=== PATIENT | male | born 2000 | race Caucasian/White ===

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

== ENCOUNTER 2025-04-07 13:17 | Emergency (ER) | payer SELFPAY ==
--- NOTE | 2025-04-07 13:19 | ED.URI ---
HPI - URI/Sore Throat General Chief Complaint: Nausea/Vomiting/Diarrhea Stated Complaint: flu symptoms Time Seen by Provider: 04/07/25 13:19 Source: patient Mode of arrival: ambulatory Limitations: no limitations History of Present Illness HPI Narrative: Andrew is a 24-year-old male patient presenting to the clinic today with complaints of flu-like symptoms. He reports he just got back from [place]. While he was staying in [place]-1[place]5 weeks ago he developed some abdominal pain/diarrhea. Reported some bright red blood in his stool a few times however that has resolved. States the abdominal pain is improving- Last diarrhea stool was last night. Initially he was having anywhere from 1 diarrhea stool to 10 diarrhea stools per day. He came into the clinic today because he started having sore throat yesterday and nasal congestion. He also reports feeling feverish. States he thinks he may still be dehydrated due to the diarrhea. Denies any nausea or vomiting. Denies any chest pain or shortness of breath. Related Data Allergies Allergy/AdvReac Type Severity Reaction Status Date / Time amoxicillin Allergy Unknown UNKNOWN Verified 04/07/25 13:36 Review of Systems Review of Systems: Pertinent positives per HPI. Patient denies any rash, headache, visual changes, dizziness, cough, shortness of breath, chest pain, palpitations, nausea, vomiting, diarrhea, constipation, abdominal pain, or any urinary issues. PMFSH Social History Social History Smoking status: Never smoker Alcohol intake: never Substance use: never Living arrangements: with family Occupation/Education: student Comments At the time of my signature, I reviewed and agree with the nursing past medical, surgical, social, and family history. There is no relevant family history pertinent to the patient complaint. Exam Narrative: General: Well-developed, well nourished, in no apparent distress Head: Normocephalic, atraumatic Eyes: Pupils equally round and reactive to light bilaterally, EOM intact, sclera and conjunctive clear, no discharge, lids normal Ears: TMs intact and congested, ear canals clear, no drainage, grossly hearing normal. Nose: Nares patent, clear nasal discharge, no inflammation, no sinus tenderness. Mouth: Oral pharynx red with bilateral tonsillar enlargement without lesions or masses, good dentition, MMM. Neck: Supple, trachea midline, enlargement of anterior cervical nodes, no thyroid masses or goiter palpable. Cardio: Regular rate and rhythm, s1 and s2 normal, no murmur appreciated. Resp: Clear to auscultation bilaterally, no rhonchi, rales, wheezing or rubs General: Well-developed, well nourished, in no apparent distress Abdomen: Soft, pliable, bowel sounds present in all quadrants, non-tender to palpation, no organomegly, no CVAT tenderness. Course Course Emergency Course: Portions of this record may have been created with voice recognition software. Level of Care: Express Care Visit Vital Signs Vital signs: Vital Signs Temperature 38.1 C H 04/07/25 13:30 Pulse Rate 60 04/07/25 13:30 Respiratory Rate 18 04/07/25 13:30 Blood Pressure 130/63 04/07/25 13:30 Pulse Oximetry 98 04/07/25 13:30 Oxygen Delivery Room Air 04/07/25 13:30 Temperature 38.1 C H 04/07/25 13:30 Pulse Rate 60 04/07/25 13:30 Respiratory Rate 18 04/07/25 13:30 Blood Pressure 130/63 04/07/25 13:30 Pulse Oximetry 98 04/07/25 13:30 Oxygen Delivery Room Air 04/07/25 13:30 Vital signs reviewed MDM - URI/Sore Throat MDM Narrative Medical decision making narrative: At the time of visit patient is resting comfortably on the exam table. Patient appears to be nontoxic. Complaints of flu-like symptoms. He reports he just got back from [place]. While he was staying in [place]5 weeks ago he developed some abdominal pain/diarrhea. Reported some bright red blood in his stool a few times however that has resolved. States the abdominal pain is improving- Last diarrhea stool was last night. Initially he was having anywhere from 1 diarrhea stool to 10 diarrhea stools per day. He came into the clinic today because he started having sore throat yesterday and nasal congestion. He also reports feeling feverish. States he thinks he may still be dehydrated due to the diarrhea. Denies any nausea or vomiting. Denies any chest pain or shortness of breath. Patient has temp of 38.1? C in the clinic. COVID, influenza, and strep test were all ordered. Labs: COVID, influenza, and strep test were performed. COVID testing was negative. Influenza B testing was negative. Influenza A testing and strep was positive. Plan: I suspect patient has influenza A, strep pharyngitis, and traveler's diarrhea. Prescription for azithromycin was sent to the pharmacy. Work note was given. Supportive measures were discussed with the patient and they voiced understanding discharge instructions and agrees to treatment plan. Return precautions reviewed Differential Diagnosis Differential diagnosis: Likely upper respiratory infection, otitis media, sinusitis, viral infection, bronchitis, influenza, pharyngitis and other (COVID) Discharge Plan Discharge Clinical Impression: Influenza A, Travelers' diarrhea, Acute streptococcal pharyngitis Patient Disposition: Home Condition: Stable Instructions: Antibiotic Form, Traveler's Diarrhea (ED), Strep Throat (ED), Influenza (ED) Additional Instructions: Influenza A and strep test were positive in the clinic today. COVID testing was negative in the clinic today. Change your toothbrush in 24 hours after initiation of the antibiotics Take prescription medications only as prescribed-azithromycin Increase fluids and stay well hydrated Tylenol/motrin for pain/fever Flonase and OTC antihistamines as directed Vicks vapor rub to open sinuses Sinus rinses for congestion Cepacol spray, cough drops, throat lozenges, warm tea with honey/lemon, gargle salt water to soothe throat BRAT diet for diarrhea Clear liquids x 24 hours then advance as tolerated for nausea/vomiting Go to the ED if you develop a worsening in your condition- high fever not controlled by Tylenol or Motrin, dehydration, weakness, lethargy, shortness of breath, or chest pain. Follow up with your PCP in 3-5 days if symptoms persist. Patient Language: Bengali Prescriptions: New azithromycin 500 mg tablet 500 mg PO DAILY 5 Days Qty: 5 0RF Follow-up/Referrals: UNKNOWN,DOCTOR [Non-Staff] - Stand Alone Forms: Work/School Release IP Time of Disposition: 13:44 Quality NIHSS Nursing Documentation ED NIHSS nursing documentation: reviewed/agree
[2025-04-07 13:30] VITALS: BP 130/63; PULSE 60; RESP 18; TEMP 38.1; O2SAT 98
[2025-04-07 14:06] LABS: EDCOVIDSCREEN Negative (Negative); EDINFLUASCREEN Positive (Negative); EDINFLUBSCREEN Negative (Negative); EDSTREPNEGPOS1 Positive (Negative)
== END 2025-04-07 13:57 | disposition home or self-care (01) ==
PROVIDERS: Emergency Provider Nurse Practitioner Family
DX: J10.1 Influenza due to other identified influenza virus with other respiratory manifestations (principal); A09 Infectious gastroenteritis and colitis, unspecified; J02.0 Streptococcal pharyngitis; Z20.822 Contact with and (suspected) exposure to COVID-19
CPT/HCPCS: 87426; 87804; 87880; 99213; G0463